=== PATIENT | female | born 1980 | race Caucasian/White ===

== ENCOUNTER 2017-03-26 16:18 | Emergency (ER) | payer MEDICAID ==
[~2017-03-26] VITALS: Ht 167.6 cm; Wt 61.2 kg
[~2017-03-26 16:18] MED LIST: ALPRAZOLAM; BIRTH CONTROL; HYDROCODONE; NAPROXEN; OMEPRAZOLE; PROZAC; [UNRECOGNIZED DRUG - OTHER]
[2017-03-26 16:20] VITALS: BP_SYST 124
[2017-03-26 16:38] VITALS: BP_SYST 124
== END 2017-03-26 16:20 | disposition home or self-care (01) ==
LOC: SED 16:18
DX: S91.331A Puncture wound without foreign body, right foot, initial encounter (principal); Z79.2 Long term (current) use of antibiotics; Z79.3 Long term (current) use of hormonal contraceptives; Z79.899 Other long term (current) drug therapy; Y28.8XXA Contact with other sharp object, undetermined intent, initial encounter; Y93.89 Activity, other specified; Y92.89 Other specified places as the place of occurrence of the external cause; Y99.8 Other external cause status
CPT/HCPCS: 99283

== ENCOUNTER 2018-04-22 15:10 | Emergency (ER) | payer MEDICAID ==
[~2018-04-22] VITALS: Ht 167.6 cm; Wt 62.6 kg
[2018-04-22 15:21] VITALS: BP_SYST 154
[2018-04-22] MEDS ORDERED: ONDANSETRON HCL 4 MG/2 ML VIAL IVP ONE (16:00)
[2018-04-22] MEDS ORDERED: NACL 0.9% 1,000 ML IV ONE (16:00)
[2018-04-22 16:22] LABS: BASOPHILS % (AUTO) 0.4 % (0.0-2.0); EOSINOPHILS % (AUTO) 0.1 % (0.0-4.0); HEMOGLOBIN 13.9 g/dL (12.0-16.0); LYMPHOCYTES # (AUTO) 0.9 K/uL (1.0-5.5); LYMPHOCYTES % (AUTO) 7.5 % (20.5-51.5); MEAN CORPUSCULAR HEMOGLOBIN 34 pg (27-31); MEAN CORPUSCULAR HGB CONC 34 % (32-36); MEAN CORPUSCULAR VOLUME 102 fL (79.0-98.0); MONOCYTES # (AUTO) 0.5 K/uL (0.0-1.0); MONOCYTES % (AUTO) 4.4 % (1.7-9.3); NEUTROPHILS # (AUTO) 10.1 K/uL (1.8-7.7); NEUTROPHILS % (AUTO) 87.6 % (40.0-70.0); PLATELET COUNT (AUTO) 447 K/uL (130-430); RED BLOOD CELL COUNT(AUTO) 4.04 MIL/uL (4.2-6.2); WHITE BLOOD COUNT (AUTO) 11.5 K/uL (4.8-10.8)
[2018-04-22 16:31] LABS: CALCIUM 8.8 mg/dL (8.4-11.0); CREATININE 0.8 mg/dL (0.55-1.30); POTASSIUM 3.5 mmol/L (3.5-5.1)
[2018-04-22 16:46] LABS: ALBUMIN 4.2 g/dL (3.4-4.8); TOTAL BILIRUBIN 0.3 mg/dL (0.0-1.0)
[2018-04-22] MEDS ORDERED: METOCLOPRAMIDE HCL 10 MG/2 ML VIAL IVP ONE (17:30)
[2018-04-22] MEDS ORDERED: KETOROLAC TROMETHAMINE 30 MG VIAL IVP ONE (17:30)
[2018-04-22 17:39] LABS: BILIRUBIN,URINE NEGATIVE (NEGATIVE); BLOOD, URINE NEGATIVE (NEGATIVE); CLARITY/URINE CLEAR (CLEAR); COLOR,URINE YELLOW (YELLOW); GLUCOSE,URINE NEGATIVE (NEGATIVE); KETONES,URINE NEGATIVE (NEGATIVE); LEUKOCYTE ESTERASE ,URINE NEGATIVE (NEGATIVE); NITRITE, URINE NEGATIVE (NEGATIVE); PROTEIN URINE 2+ (NEGATIVE); UROBILINOGEN,URINE 0.2 (0.2-1.0)
[2018-04-22 17:49] LABS: BACTERIA,URINE FEW /HPF (None Seen); MUCUS,URINE 1+ /LPF (None Seen); RBC,URINE NONE SEEN /HPF (0-3); WBC,URINE 0-3 /HPF (0-3)
[2018-04-22 18:29] VITALS: BP_SYST 136
[2018-04-22 18:33] LABS: BARBITURATE, URINE NEGATIVE (NEG <=200); BENZODIAZEPINE, URINE NEGATIVE (NEG <=150); CANNABINOID, URINE POSITIVE (NEG <=50); COCAINE, URINE NEGATIVE (NEG <=150); METHAMPHETAMINES SCREEN,URINE NEGATIVE (NEG <=500); OPIATE, URINE NEGATIVE (NEG <=100); PHENCYCLIDINE SCREEN,URINE NEGATIVE (NEG <=25); UR TRICYCLIC ANTIDEPRESSANTS NEGATIVE (NEG <=300); URINE AMPHETAMINE NEGATIVE (NEG <=500); URINE METHADONE NEGATIVE (NEG <=200); URINE OXYCODONE SCREEN NEGATIVE (NEG <=100); URINE PROPOXYPHENE SCREEN NEGATIVE (NEG <=300)
== END 2018-04-22 18:29 | disposition home or self-care (01) ==
LOC: SED 15:10
DX: K52.9 Noninfective gastroenteritis and colitis, unspecified (principal); Z79.899 Other long term (current) drug therapy
CPT/HCPCS: 36415; 80053; 80307; 81000; 83690; 85025; 96361; 96374; 96375; 99284; J1885; J2405; J2765; J7030

== ENCOUNTER 2019-10-01 07:04 | Emergency (ER) | payer MEDICAID ==
[~2019-10-01] VITALS: Ht 167.6 cm; Wt 65.8 kg
[2019-10-01 07:05] VITALS: BP_SYST 129
--- NOTE | 2019-10-01 07:05 | NUR ---
BROUGHT BACK TO BED #8 AND TRIAGED. REPORT GIVEN TO BRAULIO
--- NOTE | 2019-10-01 07:35 | NUR ---
Patient arrived via POV, AAOx4. Patient c/c of middle to upper back pain. Patient states injury approximately 10 years ago while at work. Patient states when weather gets cold, her injury hurts worse. Patient states she gets a cramping sensation related to 4 herniated disks. Will continue to follow up and monitor.
--- NOTE | 2019-10-01 07:40 | NUR ---
ER at bedside examining patient.
--- NOTE | 2019-10-01 07:49 | NUR ---
Patient taken to CT scan via wheelchair, escorted by tech.
--- NOTE | 2019-10-01 08:00 | NUR ---
Patient returned from CT scan via wheelchair.
[2019-10-01] MEDS: CYCLOBENZAPRINE HCL 10 MG TABLET (FLEXERIL) PO ONE (08:19)
[2019-10-01] MEDS: KETOROLAC TROMETHAMINE 30 MG VIAL IM ONE (08:19)
[2019-10-01] MEDS: HYDROcodone/ACETAMIN 5-325 MG TAB (NORCO/ VICODIN) PO ONE (08:20)
[2019-10-01 09:37] VITALS: BP_SYST 125
--- NOTE | 2019-10-01 09:46 | NUR ---
Patient given written and verbal discharge instructions and verbalizes understanding. ER MD discussed with patient the results and treatment provided. Patient in stable condition. ID arm band removed. Rx of Flexeril and Ibuprofen given. Patient educated on pain management and to follow up with PMD. Pain Scale 5/10. Opportunity for questions provided and answered. Medication side effect fact sheet provided.
== END 2019-10-01 09:37 | disposition home or self-care (01) ==
LOC: SED 07:04
DX: M54.6 Pain in thoracic spine (principal)
CPT/HCPCS: 71046; 86710; 96372; 99284; J1885; 36415

== ENCOUNTER 2020-06-18 10:05 | Emergency (ER) | payer MEDICAID ==
[~2020-06-18] VITALS: Ht 167.6 cm; Wt 64.4 kg
[2020-06-18 10:20] VITALS: BP_SYST 128
--- NOTE | 2020-06-18 10:28 | NUR ---
Patient to ER bed 4 to gown for evaluation. Side rails up. Report given to [facility] [place].
--- NOTE | 2020-06-18 10:34 | NUR ---
Pt to bed 4. alert and oriented. No distress noted. Pt appears calm.
--- NOTE | 2020-06-18 10:40 | NUR ---
ER Dr. Casas at bedside examining patient.
[2020-06-18 10:57] VITALS: BP_SYST 128
--- NOTE | 2020-06-18 10:58 | NUR ---
Patient given written and verbal discharge instructions and verbalizes understanding. ER MD discussed with patient the results and treatment provided. Patient in stable condition. ID arm band removed. Rx of prozac and xanax given. Patient educated on pain management and to follow up with PMD. Pain Scale 0/10. Opportunity for questions provided and answered. Medication side effect fact sheet provided.
== END 2020-06-18 10:57 | disposition home or self-care (01) ==
LOC: SED 10:05
DX: F41.9 Anxiety disorder, unspecified (principal); Z79.899 Other long term (current) drug therapy
CPT/HCPCS: 99283

== ENCOUNTER 2021-08-22 23:00 | Emergency (ER) | payer MEDICAID ==
[~2021-08-22] VITALS: Ht 167.6 cm; Wt 68.0 kg
[2021-08-22 23:45] VITALS: BP_SYST 109
[2021-08-23] MEDS ORDERED: IBUPROFEN 600 MG TABLET PO ONE (04:15)
[2021-08-23] MEDS ORDERED: IBUP-1969 PO (04:16)
--- NOTE | 2021-08-23 04:30 | NUR ---
Crutches properly fitted for patient by RN. Patient given crutch walking instructions and demonstration. Is able to demonstrate adequate crutch walking technique with crutches provided. RAE BANDAGE splint applied to LEFT ANKLE AND FOOT. PEDAL pulse noted. Capillary refill <2 seconds. Patient has ability to move non-splinted digits. Has sensation present to affected site. Skin color within normal limits. Applied for pain management control.
--- NOTE | 2021-08-23 04:34 | NUR ---
Patient given written and verbal discharge instructions and verbalizes understanding. ER MD discussed with patient the results and treatment provided. Patient in stable condition. ID arm band removed. Rx of MOTRIN given. Patient educated on pain management and to follow up with PMD. Pain Scale 5/10. Opportunity for questions provided and answered. Medication side effect fact sheet provided.
== END 2021-08-23 04:34 | disposition home or self-care (01) ==
LOC: SED 23:00
DX: S93.402A Sprain of unspecified ligament of left ankle, initial encounter (principal); Z79.899 Other long term (current) drug therapy; X50.1XXA Overexertion from prolonged static or awkward postures, initial encounter; Y93.89 Activity, other specified; Y92.89 Other specified places as the place of occurrence of the external cause; Y99.8 Other external cause status
CPT/HCPCS: 99283